=== PATIENT | male | born 1980 | race Caucasian/White ===

== ENCOUNTER 2019-03-07 18:28 | Emergency (ER) | payer SELFPAY ==
[~2019-03-07] VITALS: Ht 170.2 cm; Wt 81.8 kg
[2019-03-07 18:55] VITALS: BP 128/78; Ht 170.2 cm; Wt 81.8 kg
== END 2019-03-07 20:50 | disposition home or self-care (01) ==
LOC: D.ER 18:28
DX: S60.458A Superficial foreign body of other finger, initial encounter (principal); W45.8XXA Other foreign body or object entering through skin, initial encounter; Y93.9 Activity, unspecified; F17.210 Nicotine dependence, cigarettes, uncomplicated